=== PATIENT | male | born 1990 | race Caucasian/White ===

== ENCOUNTER → 2019-03-12 | Outpatient (CLI) | payer OTHER ==
--- NOTE | 2019-03-19 22:27 | SLEEP ---
[address] [address] SLEEP STUDY REPORT Name: ROBBIE CRANDALL [facility] [id number] Admission: 03/12/19 Attend Phys: Tanya Malone Discharge: Date of : 89 Report #: [id number] THIS REPORT FOR: //name// CC: Jose Elias Butt DO This study has been reviewed in its entirety by a board certified sleep specialist DATE OF SERVICE: 03/12/2019 HOME SLEEP STUDY REFERRING PHYSICIAN: Jose Elias Butt DO The patient is a 28-year-old who weighs 180 pounds with a BMI of 25.1. The patient has [id number] subjective hypersomnia with an Blakeslee score of 15. The patient underwent home sleep study performed by [facility]. During the night study, the patient had 27 obstructive apneas, no mixed apneas and 3 central apneas. There were 32 hypopneas. The patient's apnea hypopnea index was 7.9 per hour with a supine index of 10.1 per hour. Nocturnal oximetry study revealed an average oxygen saturation of 93% with a lowest of 85%. 2.7 minutes were spent in oxygen saturation less than 90%. EKG monitoring revealed a mean heart rate of 61 beats per minute with a maximum of 108 beats per minute. IMPRESSION: 1. Mild sleep apnea-hypopnea syndrome at an AHI of 7.9 per hour. 2. No clinically significant nocturnal hypoxia. RECOMMENDATIONS: 1. The patient is clinically symptomatic with an Blakeslee score of 15. The patient would benefit from CPAP titration. This can be done as an in-lab titration versus home auto-titration study. 2. Alternate treatment option would include a use of oral appliance. 3. Avoid [employer] depressants. 4. Cautioned regarding driving until the patient's hypersomnia is resolved with above recommendation. <ELECTRONICALLY SIGNED> By: Dangelo Johansen MD 03/19/19 [id number] 1956Aaidan Johansen MD /nt
== END ==
LOC: EDSEX → M.SLEEPLAB 15:30
DX: G47.30 Sleep apnea, unspecified (principal); G47.34 Idiopathic sleep related nonobstructive alveolar hypoventilation